=== PATIENT | male | born 1960 | race Caucasian/White ===

== ENCOUNTER 2021-04-20 01:46 | Inpatient (IN) | payer MEDICAID ==
[~2021-04-20] VITALS: Ht 152.4 cm; Wt 92.5 kg
[2021-04-20 01:46] VITALS: BP_SYST 159
--- NOTE | 2021-04-20 01:46 | NUR ---
Patient to ER bed 2 to gown for evaluation. Side rails up. Report given to October.Received patient to via wheelchair 2nd to found altered.
[2021-04-20] MEDS ORDERED: LORazepam 2 MG/ML VIAL ONE (01:55)
--- NOTE | 2021-04-20 01:55 | NUR ---
Patient w/ tonic/clonic sz lasting x1 minute.
--- NOTE | 2021-04-20 01:57 | NUR ---
difficult to assess NIH scale s/p post ictal s/p sz.
[2021-04-20] MEDS ORDERED: LORazepam 2 MG/ML VIAL IM ONE (02:00)
--- NOTE | 2021-04-20 02:00 | NUR ---
# 20 gauge angiocath placed to LAC. Use of asceptic technique. Opsite placed over site. Blood return noted. Blood for lab drawn from site. Flushed with 10 cc of normal saline. No evidence of infiltration noted. Patient tolerated well.
--- NOTE | 2021-04-20 02:02 | NUR ---
Patient transported to radiology via gurney, accompanied by radiology and RN.
--- NOTE | 2021-04-20 02:09 | NUR ---
Returned from radiology, back to [facility].
[2021-04-20 02:10] LABS: BASOPHILS # (AUTO) 0.2 K/uL (0.0-0.2); BASOPHILS % (AUTO) 1.7 % (0.0-2.0); EOSINOPHILS # (AUTO) 0.6 K/uL (0.0-0.4); EOSINOPHILS % (AUTO) 5.9 % (0.0-4.0); HEMATOCRIT 49.3 % (36-54); HEMOGLOBIN 16.6 g/dL (14.0-18.0); LYMPHOCYTES # (AUTO) 2.3 K/uL (1.0-5.5); MEAN CORPUSCULAR HEMOGLOBIN 34 pg (27-31); MEAN CORPUSCULAR HGB CONC 34 % (32-36); MEAN CORPUSCULAR VOLUME 100 fL (79.0-98.0); MONOCYTES # (AUTO) 0.7 K/uL (0.0-1.0); MONOCYTES % (AUTO) 6.7 % (1.7-9.3); NEUTROPHILS # (AUTO) 6.2 K/uL (1.8-7.7); NEUTROPHILS % (AUTO) 62.7 % (40.0-70.0); PLATELET COUNT (AUTO) 175 K/uL (130-430); RED BLOOD CELL COUNT(AUTO) 4.92 MIL/uL (4.2-6.2); RED CELL DISTRIBUTION WIDTH 13.8 % (9.0-15.0); WHITE BLOOD COUNT (AUTO) 9.8 K/uL (4.8-10.8)
--- NOTE | 2021-04-20 02:10 | NUR ---
# 20 gauge angiocath placed to [facility] by DIYA Kauffman. Use of asceptic technique. Opsite placed over site. Blood return noted. Blood for lab drawn from site. Flushed with 10 cc of normal saline. No evidence of infiltration noted. Patient tolerated well.
[2021-04-20 02:20] LABS: ANION GAP 19 (5-15); CALCIUM 9.8 mg/dL (8.4-11.0); CHLORIDE 98 mmol/L (98-107); CREATININE 1.31 mg/dL (0.55-1.30); GLUCOSE 174 mg/dL (70-99); POTASSIUM 4.2 mmol/L (3.5-5.1); SODIUM SERUM 136 mmol/L (136-145); UREA NITROGEN, BLOOD 21 mg/dL (8-21)
[2021-04-20 02:21] LABS: GFR AFRICAN AMERICAN 72 mL/min (>90)
--- NOTE | 2021-04-20 02:25 | NUR ---
Tele Neuro submitted. Ja at bedside for evaluation
[2021-04-20 02:29] LABS: ALANINE AMINOTRANSFERASE 28 U/L (12-78); ALBUMIN 3.7 g/dL (3.4-4.8); ASPARTATE AMINOTRANSFERASE 27 U/L (10-37); TOTAL BILIRUBIN 0.8 mg/dL (0.0-1.0)
--- NOTE | 2021-04-20 02:29 | NUR ---
X-ray at bedside.
--- NOTE | 2021-04-20 02:31 | NUR ---
Dr. Long spoke with Neuro consult (Dr. Muhammad) .
[2021-04-20] MEDS ORDERED: IOHEXOL 350 mgI/mL, 150 ML INFUS..BTL IV ONE (02:45)
--- NOTE | 2021-04-20 03:00 | NUR ---
Patient came back from CTA Head/neck with contrast with DIYA Cooley and Ct Scan Technician.
--- NOTE | 2021-04-20 03:20 | NUR ---
COVID-19 swabs collected and sent to lab.
--- NOTE | 2021-04-20 03:47 | NUR ---
Patient is sleeping, vss.
--- NOTE | 2021-04-20 04:48 | NUR ---
Patient resting quietly. No acute distress noted. Vital signs within normal range.
[2021-04-20] MEDS ORDERED: levETIRAcetam 1,000 MG IV BAG 100 ML IV ONE (05:15)
--- NOTE | 2021-04-20 05:45 | NUR ---
Patient resting quietly. No acute distress noted. Vital signs within normal range.
--- NOTE | 2021-04-20 06:24 | NUR ---
patient A/O,X4, denies pain.
--- NOTE | 2021-04-20 06:32 | NUR ---
Dr. Long at bedside for re-eval and explain results and treatment plans.
[2021-04-20 06:38] LABS: BILIRUBIN,URINE NEGATIVE (NEGATIVE); CLARITY/URINE CLEAR (CLEAR); COLOR,URINE YELLOW (YELLOW); GLUCOSE,URINE TRACE (NEGATIVE); KETONES,URINE NEGATIVE (NEGATIVE); LEUKOCYTE ESTERASE ,URINE NEGATIVE (NEGATIVE); NITRITE, URINE NEGATIVE (NEGATIVE); PH,URINE 5.5 (5.0-8.0); PROTEIN URINE 2+ (NEGATIVE); UROBILINOGEN,URINE 0.2 (0.2-1.0)
[2021-04-20 06:41] LABS: BLOOD, URINE TRACE (NEGATIVE)
[2021-04-20 06:45] LABS: BACTERIA,URINE FEW /HPF (None Seen); RBC,URINE 0-3 /HPF (0-3); WBC,URINE 0-3 /HPF (0-3)
[2021-04-20] MEDS ORDERED: THIAMINE HCL 100 MG in NS 50 ML IV ONE (06:45)
[2021-04-20] MEDS ORDERED: FOLIC ACID 5 MG/ML VIAL IV ONE (06:45)
[2021-04-20] MEDS ORDERED: THIAMINE HCL 100 MG/ML VIAL ONE (06:52)
[2021-04-20] MEDS ORDERED: ONDANSETRON HCL 4 MG/2 ML VIAL IVP PRN (07:15)
[2021-04-20] MEDS ORDERED: MAGNESIUM SULFATE 50 ML IV PRN (07:15)
[2021-04-20] MEDS ORDERED: MUPIROCIN 2% TOPICAL OINTMENT 22 GM NS PRN (07:15)
[2021-04-20] MEDS ORDERED: POTASSIUM CHLORIDE 20 MEQ TAB.PRT.SR PO PRN (07:15)
[2021-04-20] MEDS ORDERED: LORazepam 2 MG/ML VIAL IVP PRN (07:15)
[2021-04-20] MEDS ORDERED: DOCUSATE SODIUM 100 MG CAPSULE PO PRN (07:15)
[2021-04-20] MEDS ORDERED: ACETAMINOPHEN 325 MG TABLET PO PRN ×2 (07:15→07:45)
[2021-04-20] MEDS ORDERED: ZOLPIDEM TARTRATE 5 MG TABLET PO PRN (07:15)
--- NOTE | 2021-04-20 07:43 | NUR ---
Pt. sleeping RR 14, O2sat 100%.
--- NOTE | 2021-04-20 07:51 | NUR ---
ER at bedside examining patient.
--- NOTE | 2021-04-20 09:10 | NUR ---
Patient will be admitted to care of Dr Ng. Admitted to tele unit. Will go to room 134B. Belongings list completed. Complete and up to date summary report printed. SBAR report given at bedside with Jarrett opportunity for questions.
[2021-04-20 09:15] VITALS: BP_SYST 130
--- NOTE | 2021-04-20 09:15 | NUR ---
PATIENT ARRIVES FROM ER VIA GURNEY OBESE PATIENT A 60 YEAR OLD PATIENT WITH SEIZURE. BUT NO SEIZURE ON ADMISSION. PATIENT AAOX 3-4. VITALS SIGNS STABLE. AFEBRILE. CALL LIGHTS WITHIN REACH. ORIENTED TO THE ROOM. AND SURROUNDINGS. URINAL GIVEN X 2. WILL CONTINUE TO MONITOR PATIENTS STATUS. INFORMED TO CALL US FOR ANY ASSISTANCE. PADDED SIDE RAILS PLACED. HAS IV ACCESS ON THE RT AC #20 WITH NORMAL SALINE AT 100CC/HR INFUSING. ON WELL.
--- NOTE | 2021-04-20 09:45 | NUR ---
DUE MEDS GIVEN. ON HEPARIN THERAPY SUBCUTENOUSLY.
--- NOTE | 2021-04-20 10:00 | NUR ---
ADMISSION ASSESSMENT DONE.
--- NOTE | 2021-04-20 10:03 | NUR ---
CONSULTATION PAGED/CALLED Reason for Consultation: SEIZURE Person Who was Notified: DR SUNG VIA TXT Consulting Physician: DR SUNG Returned Goods Sorter Specialty: Ordering Physician: ANTONIO
--- NOTE | 2021-04-20 10:30 | NUR ---
HANGED D51/2NS AT THIS TIME.
[2021-04-20 10:40] VITALS: BP_SYST 120
[2021-04-20] MEDS: HEPARIN SODIUM,PORCINE 5,000 UNITS/ML VIAL SUBCUT SCH ×2 (11:16→20:16)
[2021-04-20] MEDS: D5NS 1,000 ML IV SCH ×2 (11:17→20:07)
--- NOTE | 2021-04-20 12:00 | NUR ---
NPO STATUS. VERBALIZED NOT HUNGRY
--- NOTE | 2021-04-20 14:00 | NUR ---
RESTING NO COMPLAINED MADE SO FAR
--- NOTE | 2021-04-20 15:00 | NUR ---
BILATERAL LEGS DISCOLORED NOTED AND TOOK PHOTOS ON IT.
--- NOTE | 2021-04-20 16:00 | NUR ---
VOIDED IN THE URINAL ABOUT 600CC STUART COLOR URINE.
--- NOTE | 2021-04-20 18:00 | NUR ---
CALLED DR ALVAREZ FOR DIET ORDER STILL NPO STATUS. CALL BACK ORDERED REGULAR DIET.
[2021-04-20 19:20] VITALS: BP_SYST 136
--- NOTE | 2021-04-20 19:29 | NUR ---
ENDORSED TO INCOMING NURSE MARKOS KEANE. PATIENT HAD A REGULAR DINNER TRAY. BUT PATIENT VERY SLEEPY. NO SEIZURE NOTED.
--- NOTE | 2021-04-20 19:30 | NUR ---
INITIAL NOTE AT INITIAL ASSESSMENT, PATIENT IS RESTING IN BED, STABLE, NO SIGNS OF RESPIRATORY DISTRESS. PATIENT VERBALIZES NO PAIN. HE IS ALERT BUT LETHARGIC, HE DOES NOT REMEMBER WHAT HAPPENED THE PREVIOUS NIGHT, STATING HE BELIEVES HE MAY HAVE "BLACKED OUT". PLAN OF CARE FOR THE EVENING IS COMMUNICATED WITH THE PATIENT. PATIENT DEMONSTRATES CORRECT USAGE OF CALL LIGHT AT THIS TIME. BED IS LOCKED, ALARMED, AND AT THE LOWEST LEVEL. FALL SAFETY EDUCATION PROVIDED. FALL, SAFETY, SEIZURE, AND RESPIRATORY PRECAUTIONS WILL BE TAKEN THROUGHOUT THE SHIFT.
[2021-04-21] MEDS: D5NS 1,000 ML IV SCH ×2 (05:31→12:39)
[2021-04-21 06:18] LABS: BASOPHILS # (AUTO) 0.1 K/uL (0.0-0.2); BASOPHILS % (AUTO) 1.2 % (0.0-2.0); EOSINOPHILS # (AUTO) 0.4 K/uL (0.0-0.4); EOSINOPHILS % (AUTO) 8.4 % (0.0-4.0); HEMOGLOBIN 14.1 g/dL (14.0-18.0); LYMPHOCYTES # (AUTO) 1.2 K/uL (1.0-5.5); LYMPHOCYTES % (AUTO) 27.8 % (20.5-51.5); MEAN CORPUSCULAR HEMOGLOBIN 34 pg (27-31); MEAN CORPUSCULAR HGB CONC 34 % (32-36); MEAN CORPUSCULAR VOLUME 98 fL (79.0-98.0); MONOCYTES # (AUTO) 0.4 K/uL (0.0-1.0); MONOCYTES % (AUTO) 9.6 % (1.7-9.3); NEUTROPHILS # (AUTO) 2.3 K/uL (1.8-7.7); PLATELET COUNT (AUTO) 119 K/uL (130-430); RED CELL DISTRIBUTION WIDTH 13.5 % (9.0-15.0); WHITE BLOOD COUNT (AUTO) 4.4 K/uL (4.8-10.8)
--- NOTE | 2021-04-21 06:58 | NUR ---
CLOSING NOTE PATIENT IS MOSTLY ALERT THIS MORNING. HE SLEPT WELL THROUGHOUT THE SHIFT, BUT HAD NO APPETITE FOR ANY FOOD. NO SHORTNESS OF BREATH NOTED. AT THIS TIME, PATIENT IS RESTING IN BED, STABLE, NO SIGNS OF RESPIRATORY DISTRESS. CALL LIGHT IS WITHIN REACH. BED IS LOCKED, ALARMED, AND AT THE LOWEST LEVEL. FALL, SAFETY, SEIZURE, AND RESPIRATORY PRECAUTIONS HAVE BEEN TAKEN THROUGHOUT THE SHIFT. WILL CONTINUE TO MONITOR UNTIL SHIFT REPORT IS GIVEN AT BEDSIDE TO AM NURSE.
[2021-04-21 07:02] LABS: CALCIUM 7.7 mg/dL (8.4-11.0); CREATININE 0.96 mg/dL (0.55-1.30); POTASSIUM 3.8 mmol/L (3.5-5.1)
[2021-04-21 08:00] VITALS: BP_SYST 146
[2021-04-21] MEDS: HEPARIN SODIUM,PORCINE 5,000 UNITS/ML VIAL SUBCUT SCH (09:00)
--- NOTE | 2021-04-21 10:17 | NUR ---
Nutrition Update Maximino Scale 17 noted. Pt admitted for seizure. Diet: regular BMI: 39.8 kg/m2 RD to follow per nutrition care standards.
[2021-04-21 12:00] VITALS: BP_SYST 158
[2021-04-21 16:00] VITALS: BP_SYST 140
[2021-04-21 16:58] VITALS: BP_SYST 160
== END 2021-04-21 19:00 | disposition home or self-care (01) | DRG 53 ==
LOC: SED 01:46 → STU 06:18
PROVIDERS: ADMIT General Practice; ATTEND General Practice
DX: G40.89 Other seizures (principal); N17.0 Acute kidney failure with tubular necrosis; G90.8 Other disorders of autonomic nervous system; R56.9 Unspecified convulsions; I10 Essential (primary) hypertension; E11.43 Type 2 diabetes mellitus with diabetic autonomic (poly)neuropathy; Z20.822 Contact with and (suspected) exposure to COVID-19; Z56.0 Unemployment, unspecified
CPT/HCPCS: 36415; 70450-TC; 70496; 70498; 71045; 76376; 80048; 80053; 81000; 83036; 83735; 84484; 85025; 93005; 95816; 96365; 96366; 96372; 99285; G0378; J1644; J1953; J2060; J3411; J3490; Q9967